=== PATIENT | male | born 2005 | race Two or more races ===

== ENCOUNTER 2024-07-30 20:32 | Emergency (ER) | payer BC, OTHER ==
[~2024-07-30] VITALS: Ht 180.3 cm; Wt 111.8 kg
[2024-07-30 21:23] LABS: Urine Bacteria None Seen /hpf (None Seen)
[2024-07-30 21:30] LABS: Urine Blood Negative /uL (Negative); Urine Clarity Clear (Clear); Urine Color Light-Yellow (Yellow); Urine Protein, UAD Negative (Negative); Urine Specific Gravity 1.012 (1.001-1.035); Urine Squamous Epithelial Cell FEW /hpf (<5); Urine Urobilinogen Normal (Negative); Urine WBC <1 /hpf (0 - 3)
[2024-07-30 21:54] LABS: Basophils # (auto) 0 10 ^3/uL (0-0.2); Basophils % (auto) 0.3 % (0.0-2.0); Eosinophils # (auto) 0.1 10 ^3/uL (0-0.8); Eosinophils % (auto) 0.6 % (0.0-7.0); Hematocrit 44.6 % (41.0-53.0); Hemoglobin 15.2 g/dL (13.5-17.5); Lymphocytes # (auto) 2.3 10 ^3/uL (0.4-5.4); Lymphocytes % (auto) 20.9 % (10.0-50.0); Mean Corpuscular Hemoglobin 29.3 pg (28.0-32.0); Mean Corpuscular Volume 86.3 fL (80.0-100.0); Monocytes # (auto) 0.6 10 ^3/uL (0-1.3); Monocytes % (auto) 5.8 % (0.0-12.0); Neutrophils % (auto) 72.4 % (37.0-80.0); Nucleated Red Blood Cells % 1.9 %; Platelet Count (auto) 176 10^3/uL (140-450); Red Blood Cells 5.17 10^6/uL (4.5-5.90); Red Cell Distribution Width 13.6 % (11.8-14.3)
--- NOTE | 2024-07-30 22:19 | DVH ---
ULTRASOUND OF SCROTUM AND CONTENTS. INDICATION: LEFT TESTICULAR PAIN R/O TORSION COMPARISON: None TECHNIQUE: Multiple real-time grayscale sonographic and color and duplex Doppler images of the scrotu m and its contents were obtained. FINDINGS: The right testicle measures 3.6 x 2.3 x 2.6 cm. The left testicle measures 3.7 x 2.2 x 2.4 cm. Both testicles demonstrate homogeneous echotexture without evidence of focal lesions. The right epididymal head measures 0.8 cm. The left epididymal head measures 1.2 cm. Benign cyst in t he left epididymis measures 4.2 x 3.5 x 3.5 mm. Subsequent color and duplex Doppler interrogation of the testes demonstrated symmetric normal vascula r flow to both testicles. No focal areas of hyperemia were seen. IMPRESSION: 1. No evidence of torsion, epididymitis, and/or orchitis.
[2024-07-31] MEDS ORDERED: AMOX875T4 PO (00:46)
[2024-07-31] MEDS ORDERED: IBUP-1456 PO (00:46)
--- NOTE | 2024-07-31 00:46 | ED.PDOC ---
General HPI Comments 19-YEAR-OLD MALE PRESENTS TO ER WITH COMPLAINTS OF LEFT TESTICULAR PAIN X2 WEEKS. PATIENT REPORTS HE HAS BEEN EXPERIENCING LEFT-SIDED TESTICULAR PAIN AND MILD SWELLING TO LEFT TESTICLE X2 WEEKS, DENYING ANY TRAUMA/INJURY/HEAVY LIFTING. HE RATES HIS CURRENT PAIN AN 8/10 TO LEFT TESTICLE WITH RADIATION TOWARDS THE LEFT GROIN. PATIENT ALSO REPORTS BILATERAL EARACHE PAIN AND CONGESTION X2 WEEKS. DENIES FEVER, NAUSEA/VOMITING, ABDOMINAL/PELVIC PAIN, CH ANGES IN URINATION, BACK/FLANK PAIN, EXPOSURE TO STD OR ANY FURTHER SYMPTOMS/COMPLAINTS Chief Complaint: Testicle Pain Time Seen by MD: 21:30 Primary Care Provider: ZULY Reviewed notes: Nurses Notes, Medications, Allergies Allergies: Coded Allergies: NO KNOWN ALLERGIES (Unverified , 07/30/24) Home Meds Active Scripts Ibuprofen (Ibuprofen) 800 Mg Tab, 1 TAB PO TID PRN, #30 TAB 0 Refills Prov:DAE ROBERTS 07/31/24 Amoxicillin & Pot Clavulanate (Amoxicillin/Potassium Cla) 875 Mg Tab, 1 TAB PO BID for 7 Days, #14 TAB 0 Refills Prov:DAE ROBERTS 07/31/24 Information Source: Patient Mode of Arrival: Ambulatory Past Medical History PAST MEDICAL HISTORY: Denies Past Medical History (Other): ADHD Surgical History (Other): LEFT FOOT SURGERY Family History Family History: Unknown Social History Smoker: Non-Smoker Alcohol: Denies ETOH Use Drugs: Denies Drug Use Lives In: Home Constitutional: denies: chills, diaphoresis, fatigue, fever, malaise, sweats, weakness, others EENTM: reports: others ( STATED IN HPI) Respiratory: denies: cough, hemoptysis, orthopnea, SOB at rest, shortness of breath, SOB with excertion, stridor, wheezing, others Cardiovascular: denies: chest pain, dizzy spells, diaphoresis, Dyspnea on exertion, edema, irregular heart beat, left arm pain, lightheadedness, palpitations, PND, syncope, others Gastrointestinal: denies: abdomen distended, abdominal pain, blood streaked bowels, constipated, diarrhea, dysphagia, difficulty swallowing, hematemesis, melena, nausea, poor appetite, poor fluid intake, rectal bleeding, rectal pain, vomiting, others Genitourinary: reports: others ( STATED IN HPI) Neurological: denies: dizziness, fainting, headache, left sided numbness, left sided weakness, numbness, paresthesia, pre-existing deficit, right sided numbness, right sided weakness, seizure, speech problems, tingling, tremors, weakness, others Musculoskeletal: denies: back pain, gout, joint pain, joint swelling, muscle pain, muscle stiffness, neck pain, others Integumetry: denies: bruises, change in color, change in hair/nails, dryness, laceration, lesions, lumps, rash, wounds, others Allergic/Immunocompromised: denies: Difficulty Healing, Frequent Infections, Hives, Itching, others Hematologic/Lymphatic: denies: anemia, blood clots, easy bleeding, easy bruising, swollen glands, others Endocrine: denies: excessive hunger, excessive sweating, excessive thirst, excessive urination, flushing, intolerance to cold, intolerance to heat, unexplained weight gain, unexplained weight loss, others Psychiatric: denies: anxiety, bipolar disorder, depression, hopeless, panic disorder, schizophrenia, sleepless, suicidal, others Physical Exam General Appearance: No Apparent Distress, Obese HEENT: PERRL/EOMI, Pharynx Normal, Other (MILD ERYTHEMA NOTED TO BILATERAL MIDDLE EAR CANALS. REMAINDER BILATERAL EAR EXAM-UNREMARKABLE) Neck: Full Range of Motion, Non-Tender, Normal Respiratory: Chest Non-Tender, Lungs Clear, No Accessory Muscle Use, No Respira tory Distress, Normal Breath Sounds Cardiovascular: No Murmur, No Gallop, Regular Rate/Rhythm Breast Exam: Deferred Gastrointestinal: Non Tender, No Pulsatile Mass, Soft Genitalia: Other (SMALL PALPABLE CYST NOTED TO LEFT TESTICLE. POSITIVE CREMASTERIC REFLEX BILATERALLY. NEGATIVE PREHN SIGN BILATERALLY. 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 Was a procedure done?: No Sedation Sedation?: No Differential Diagnosis Kidney stone (Female): N/A Penile/Scrotal: UTI, Hydrocele, Testicular Torsion X-Ray, Labs, Meds, VS Vital Signs Date Time Temp Pulse Resp B/P (MAP) Pulse Ox O2 Delivery O2 Flow Rate FiO2 07/30/24 20:50 98.7 92 18 137/75 (95) 98 98.7 07/30/24 20:50 Room Air 07/30/24 20:50 98.7 92 18 137/75 (95) 98 Lab Test 07/30/24 21:28 07/30/24 21:02 Range/Units White Blood Count 11.0 H 4.4-10.8 10^3/uL Red Blood Count 5.17 4.5-5.90 10^6/uL Hemoglobin 15.2 13.5-17.5 g/dL Hematocrit 44.6 41.0-53.0 % Mean Corpuscular Volume 86.3 80.0-100.0 fL Mean Corpuscular Hemoglobin 29.3 28.0-32.0 pg Mean Corpuscular Hemoglobin Concent 34.0 32.0-36.0 g/dL Red Cell Distribution Width 13.6 11.8-14.3 % Platelet Count 176 140-450 10^3/uL Mean Platelet Volume 7.9 6.9-10.8 fL Neutrophils (%) (Auto) 72.4 37.0-80.0 % Lymphocytes (%) (Auto) 20.9 10.0-50.0 % Monocytes (%) (Auto) 5.8 0.0-12.0 % Eosinophils (%) (Auto) 0.6 0.0-7.0 % Basophils (%) (Auto) 0.3 0.0-2.0 % Neutrophils # (Auto) 8.0 1.6-8.6 10 ^3/uL Lymphocytes # (Auto) 2.3 0.4-5.4 10 ^3/uL Monocytes # (Auto) 0.6 0-1.3 10 ^3/uL Eosinophils # (Auto) 0.1 0-0.8 10 ^3/uL Basophils # (Auto) 0 0-0.2 10 ^3/uL Nucleated Red Blood Cells 1.9 % Urine Color Light-yellow Yellow Urine Clarity Clear Clear Urine pH 6.0 5.0-9.0 Urine Specific [place] 1.012 1.001-1.035 Urine Protein Negative Negative Urine Ketones Trace Negative Urine Blood Negative Negative /uL Urine Nitrite Negative Negative Urine Bilirubin Negative Negative Urine Urobilinogen Normal Negative mg/dL Urine Leukocyte Esterase Negative Negative /uL Urine RBC None seen 0 - 3 /hpf Urine WBC <1 0 - 3 /hpf Urine Squamous Epithelial Cells Few <5 /hpf Urine Bacteria None seen None Seen /hpf Urine Glucose Normal Normal mg/dL PATIENT: MARIUM BUTLERCCT: [id number]: [id number] : 2005 LOC: ER ROOM / BED: / AGE / SEX: 19 / M ADM STATUS: REG ER SERVICE 17 ORDERING PHYSICIAN: DAE ROBERTS PROCEDURE(s): TESUS - TESTICULAR ULTRASOUND REASON: LEFT TESTICULAR PAIN R/O TORSION ORDER NUMBER(s): [id number], ACCESSION NUMBER(s): [id number] ULTRASOUND OF SCROTUM AND CONTENTS. INDICATION: LEFT TESTICULAR PAIN R/O TORSION COMPARISON: None TECHNIQUE: Multiple real-time grayscale sonographic and color and duplex Doppler images of the scrotum and its contents were obtained. FINDINGS: The right testicle measures 3.6 x 2.3 x 2.6 cm. The left testicle measures 3.7 x 2.2 x 2.4 cm. Both testicles demonstrate homogeneous echotexture without evidence of focal lesions. The right epididymal head measures 0.8 cm. The left epididymal head measures 1.2 cm. Benign cyst in the left epididymis measures 4.2 x 3.5 x 3.5 mm. Subsequent color and duplex Doppler interrogation of the testes demonstrated symmetric normal vascular flow to both testicles. No focal areas of hyperemia were seen. IMPRESSION: 1. No evidence of torsion, epididymitis, and/or orchitis. ATED BY: FERNANDO VALVERDE MD DICTATED DATE/TIME: 07/30/242215 SIGNED BY: FERNANDO VALVERDE MD SIGNED DATE/TIME: 07/30/242215 CC: CBC REVIEWED-WBC 11.0 URINALYSIS REVIEWED WITHOUT ANY SIGNIFICANT ABNORMALITIES TESTICULAR ULTRASOUND REVIEWED ADVISED ON REST/NO STRENUOUS ACTIVITY PATIENT HAD IMPROVEMENT IN SYMPTOMS AND IN NO DISTRESS PRIOR TO DISCHARGE PATIENT PROVIDED COPY OF ULTRASOUND REPORT ADVISED TO FOLLOW UP WITH PCP AND UROLOGY IN 1-2 DAYS PATIENT VERBALIZED UNDERSTANDING AND AGREEABLE WITH CURRENT PLAN OF CARE ADVISED TO RETURN TO ER IMMEDIATELY IF SYMPTOMS WORSEN Time of 1ST Reevaluation: 23:02 Reevaluation 1ST: N/A Time of 2ND Reevaluation: 00:40 Reevaluation 2ND: Improved Patient Education/Counseling: Diagnosis, Treatment, Prognosis, Need For Follow Up Family Education/Counseling: No Family Present Departure 1 Departure Time of Disposition: 00:42 Impression: Primary Impression: Epididymal cyst Additional Impression: Otitis media of both ears Qualified Codes: H66.93 - Otitis media, unspecified, bilateral Disposition: 01 HOME / SELF CARE / HOMELESS Condition: Stable e-Prescriptions Ibuprofen (Ibuprofen) 800 Mg Tab 1 TAB PO TID PRN, #30 TAB 0 Refills Prov: DAE ROBERTS 07/31/24 Amoxicillin & Pot Clavulanate (Amoxicillin/Potassium Cla) 875 Mg Tab 1 TAB PO BID for 7 Days, #14 TAB 0 Refills Prov: DAE ROBERTS 07/31/24 Discharged With: Self Critical Care Note Critical Care Time?: No Stability Stability form required: No Heart Score Heart Score: Heart Score Response (Comments) Value History N/A 0 EKG N/A 0 Age N/A 0 Risk Factors N/A 0 Troponin N/A 0 Total 0 DAE ROBERTS Jul 31, 2024 00:46
[2024-07-31 01:08] VITALS: BP 136/79; PULSE 91; RESP 18; TEMP 97.9; O2SAT 97
== END 2024-07-31 01:10 | disposition home or self-care (01) ==
LOC: ER 20:32
DX: N50.3 Cyst of epididymis (principal); H66.93 Otitis media, unspecified, bilateral; Z98.890 Other specified postprocedural states
CPT/HCPCS: 36415; 76870; 81001; 85025